=== PATIENT | female | born 1985 | race African-American/Black ===

== ENCOUNTER 2020-07-08 16:32 | Emergency (ER) | payer OTHER, BC ==
[2020-07-08] MEDS ORDERED: HYDROmorphone 1 MG/ML CARPUJECT IM STA (17:36)
--- NOTE | 2020-07-08 17:38 | ED Physician Documentation ---
History of Present Illness - Stated complaint Stated Complaint: BACK/WRIST PX - Chief complaint Chief Complaint: Back Pain - Additonal information Additional information: 34-year-old female presents to the emergency department for evaluation of acute left sided back pain as well as left wrist pain. She reports that 4 days ago at work she and a coworker were helping move a heavy fixed year and it slipped. She felt pain in the left side of the back immediately as well is having new left wrist pain. She reports that she has a history of chronic low back pain secondary to being overweight. She also reports carpal tunnel syndrome in both of her wrists and typically wears a splint. Over the last 3 to 4 days she has found it difficult to get comfortable at night and has been taking methocarbamol without relief of pain. She denies any fevers dysuria hematuria. No vomiting. No fevers, saddle anesthesia or loss of control of bowel or bladder function She lives in [place] and her primary care provider is through [facility]. She is here with her today visiting [place] the [place] but due to the pain they decided to seek treatment. Patient is a known diabetic. Takes metformin. Last hemoglobin A1c somewhere between 7.0 and 7.5 Review of Systems Constitutional: reports: Reviewed and negative Ears: reports: Reviewed and negative Nose: reports: Reviewed and negative Throat: reports: Reviewed and negative Cardiac: reports: Reviewed and negative Respiratory: reports: Reviewed and negative GI: reports: Reviewed and negative : reports: Reviewed and negative Skin: reports: Reviewed and negative Musculoskeletal: reports: Back pain, Joint pain Neurologic: reports: Reviewed and negative Psychiatric: reports: Reviewed and negative PD PAST MEDICAL HISTORY - Past Medical History Cardiovascular: Hypertension Respiratory: None Neuro: None Endocrine/Autoimmune: Type 2 diabetes GI: None H[employer] INS[employer]OR: None : None HEENT: None Psych: Anxiety Musculoskeletal: None Derm: None - Past Surgical History Past Surgical History: No - Present Medications Home Medications: Ambulatory Orders Medication Instructions Recorded Confirmed Cyclobenzaprine [Flexeril] 10 mg PO BID #20 tablet 07/08/20 Ibuprofen [Motrin] 600 mg PO Q6H PRN #30 tab 07/08/20 - Allergies Allergies/Adverse Reactions: Allergies Allergy/AdvReac Type Severity Reaction Status Date / Time No Known Drug Allergies Allergy Verified 07/08/20 16:37 - Social History Does the pt smoke?: No Smoking Status: Never smoker Does the pt drink ETOH?: Yes Does the pt have substance abuse?: No - Immunizations Immunizations are current?: Yes PD ED PE EXPANDED - General General: Alert, No acute distress - Neck Neck: Supple w/out meningeal sx - Cardiac Cardiac: Regular Rate, Radial strong equal, Pedal strong equal, Cap refill < 2 sec, Prolonged cap refill - Respiratory Respiratory: Clear to ausultation jose angel. No: Distress, Labored - Abdomen Abdomen: Normal Bowel sounds. No: Tender to palpation - Back Back: Soft tissue tenderness (Tenderness of the left lateral lower thoracic and lumbar paraspinous muscles. Reduced forward flexion lumbar spine. Motor strength 5 of 5 bilateral lower extremities. capable walking on heels and toes), Limited ROM. No: Normal ROM, Vertebral tenderness, Straight leg raise + R, Straight leg raise + L, CVA TTP right, CVA TTP left - Derm Derm: Normal color. No: Warm and dry, Pale, Abrasion (s), Bruising - Extremities Extremities: Left wrist (Mild tenderness of the left medial wrist over ulnar prominence. No swelling erythema. No reduced range of motion) - Neuro Neuro: Alert and Oriented X 3, CNII-XII intact, PERRL Results - Vitals Vitals: Vital Signs - 24 hr 07/08/20 07/08/20 07/08/20 16:37 16:57 18:43 Temperature 36.7 C Heart Rate 120 H 105 H 81 Respiratory 18 16 16 Rate Blood Pressure 186/105 H 160/94 H 130/85 H O2 Saturation 100 100 100 Oxygen O2 Source Room air - Labs Labs: Laboratory Tests 07/08/20 07/08/20 07/08/20 18:15 18:15 19:01 WBC 13.3 H RBC 4.22 Hgb 11.7 L Hct 36.4 L MCV 86.3 MCH 27.7 MCHC 32.1 RDW 13.5 Plt Count 318 MPV 9.8 Neut # (Auto) 8.1 H Lymph # (Auto) 4.4 H Alexander # (Auto) 0.7 Eos # (Auto) 0.1 Baso # (Auto) 0.0 Absolute Nucleated RBC 0.00 Nucleated RBC % 0.0 Sodium Potassium Chloride Carbon Dioxide Anion Gap BUN Creatinine Estimated GFR (MDRD) Glucose Calcium Total Bilirubin AST ALT Alkaline Phosphatase Total Protein Albumin Globulin Albumin/Globulin Ratio Lipase Urine Color YELLOW Urine Clarity CLEAR Urine pH 6.0 Ur Specific [place] 1.025 1.025 Urine Protein NEGATIVE Urine Glucose (UA) NEGATIVE Urine Ketones NEGATIVE Urine Occult Blood LARGE H Urine Nitrite NEGATIVE Urine Bilirubin NEGATIVE Urine Urobilinogen 0.2 (NORMAL) Ur Leukocyte Esterase NEGATIVE Urine RBC 11-25 H Urine WBC 0-3 Ur Squamous Epith Cells FEW Squamous Urine Bacteria Few Urine Mucus Moderate Strands Ur Microscopic Review INDICATED Urine Culture Comments NOT INDICATED Urine HCG, Qual NEGATIVE 07/08/20 19:01 WBC RBC Hgb Hct MCV MCH MCHC RDW Plt Count MPV Neut # (Auto) Lymph # (Auto) Alexander # (Auto) Eos # (Auto) Baso # (Auto) Absolute Nucleated RBC Nucleated RBC % Sodium 137 Potassium 2.7 L Chloride 97 L Carbon Dioxide 25 Anion Gap 15.0 H BUN 12 Creatinine 0.7 Estimated GFR (MDRD) 115 Glucose 117 H Calcium 8.7 Total Bilirubin 0.5 AST 14 ALT 13 Alkaline Phosphatase 53 Total Protein 7.5 Albumin 3.5 Globulin 4.0 Albumin/Globulin Ratio 0.9 L Lipase 21 L Urine Color Urine Clarity Urine pH Ur Specific [place] Urine Protein Urine Glucose (UA) Urine Ketones Urine Occult Blood Urine Nitrite Urine Bilirubin Urine Urobilinogen Ur Leukocyte Esterase Urine RBC Urine WBC Ur Squamous Epith Cells Urine Bacteria Urine Mucus Ur Microscopic Review Urine Culture Comments Urine HCG, Qual - Rads (name of study) left wrist Radiology: EMP read indepedently (No acute osseous abnormality) CT abd Radiology: Final report received (No evidence of acute urinary tract calcification or obstruction. Small hiatal hernia. Cholelithiasis without evidence of cholecystitis. Normal appendix.) PD MEDICAL DECISION MAKING - ED course Complexity details: reviewed results, considered differential, d/w patient, d/w family ED course: 34-year-old female presents the emergency department with 4 days of left lateral thoracic and lumbar pain as well as left wrist pain after she prevented a heavy fixture from falling at work 4 days ago. On exam she has mild paraspinous tenderness but no midline vertebral tenderness. The left wrist also shows no acute findings on x-ray. Pain improved markedly following 1 mg of Dilaudid in the ER. She then had full range of motion of her lumbar spine and a normal gait. At this time I suspect that she most likely has thoracic and lumbar sprain. I will recommend a short course of NSAID medication plus a muscle relaxer (flexeril) for nighttime use. I have encouraged her to wear her wrist brace at all times that she does have a history of carpal tunnel. schedule close follow up with her primary care provider. Pt is noted to have moderate heamturia. She is not on her menses. I discussed this finding with the patient. She denies any previous history of similar. We elected today to include CT imaging of the abdomen for evaluation of possible nephrolithiasis, however CT scan did not show any acute or worrisome findings. This was discussed with the patient and she will continue close follow-up with her primary care provider Departure - Departure Clinical Impression: Thoracic back sprain Qualifiers: Encounter type: initial encounter Qualified Code(s): S23.9XXA - Sprain of unspecified parts of thorax, initial encounter Lumbar sprain Qualifiers: Encounter type: initial encounter Qualified Code(s): S33.5XXA - Sprain of ligaments of lumbar spine, initial encounter Sprain of left wrist Qualifiers: Encounter type: initial encounter Qualified Code(s): S63.502A - Unspecified sprain of left wrist, initial encounter Hematuria Qualifiers: Hematuria type: other microscopic Qualified Code(s): R31.29 - Other microscopic hematuria; R31.2 - Other microscopic hematuria Condition: Stable Record reviewed to determine appropriate education?: Yes Instructions: ED Low Back Pain Injury Prescriptions: Cyclobenzaprine [Flexeril] 10 mg PO BID #20 tablet Ibuprofen [Motrin] 600 mg PO Q6H PRN #30 tab PRN Reason: Pain Comments: Maday I think that you have strained your left thoracic and lumbar muscles. I would like you to take the ibuprofen with food 3 times a day for the next 5 to 6 days. I also recommend gentle stretching and heat to help relax the muscles. I have prescribed Flexeril as a muscle relaxer. This may be sedating so do not drive or work when taking it. Please schedule close follow-up with your primary care doctor for further evaluation of your back pain. If this is not getting markedly better over the next week your primary doctor may want to make a physical therapy referral. You do have blood in your urine today however there are no signs of infection. We are sending it for a culture to make sure. The CT scan also did not show any worrisome findings. It is important that you discuss the hematuria or bloody urine with your primary care provider for further follow-up. If at any point you develop weakness in your legs, have numbness in your saddle area, develop fevers then please return immediately to the ER
--- NOTE | 2020-07-08 17:52 | XRAY Report ---
PROCEDURE: Wrist 2 View LT INDICATIONS: wrist pain; r/o fx TECHNIQUE: 2 views of the wrist were acquired. COMPARISON: None FINDINGS: Bones: No fractures or dislocations. No suspicious bony lesions. Scaphoid view: Not requested Soft tissues: No suspicious soft tissue calcifications. IMPRESSION: No acute fracture. No osseous lesion. If symptoms and/or clinical suspicion for pathology continue, f urther assessment with repeat plain films, or advanced imaging (e.g., CT, MRI, or bone scan) is recom mended for further assessment. Reviewed by: Mason aPlmer MD on 07/08/2020 5:51 PM PDT Approved by: Mason Palmer MD on 07/08/2020 5:51 PM PDT Station ID: [id number]
[2020-07-08 18:28] LABS: BILIRUBIN,URINE NEGATIVE (NEGATIVE); GLUCOSE, URINE (UA) NEGATIVE (NEGATIVE); KETONES,URINE (UA) NEGATIVE (NEGATIVE); LEUKOCYTE ESTERASE, URINE NEGATIVE (NEGATIVE); NITRITE,URINE NEGATIVE (NEGATIVE); OCCULT BLOOD,URINE LARGE (NEGATIVE); PROTEIN,URINE NEGATIVE (NEGATIVE); UROBILINOGEN,URINE 0.2 (NORMAL) E.U./dL (NORMAL)
[2020-07-08 18:30] LABS: CLARITY,URINE CLEAR (CLEAR)
[2020-07-08 18:39] LABS: BACTERIA,URINE Few /HPF (None Seen); SQUAMOUS EPITHELIAL CELL,UR FEW Squamous (<= Few)
[2020-07-08 18:40] LABS: MUCUS,URINE Moderate Strands
[2020-07-08 19:11] LABS: BASOPHILS % (AUTO) 0.3 %; EOSINOPHILS # (AUTO) 0.1 10^3/uL (0.0-0.7); EOSINOPHILS % (AUTO) 0.5 %; HGB - HEMOGLOBIN 11.7 g/dL (12.0-16.0); LYMPHOCYTES # (AUTO) 4.4 10^3/uL (1.5-3.5); MEAN CORPUSCULAR HEMOGLOBIN 27.7 pg (27.0-31.0); MEAN CORPUSCULAR HGB CONC 32.1 g/dL (32.0-36.0); MEAN CORPUSCULAR VOLUME 86.3 fL (81.0-99.0); MEAN PLATELET VOLUME 9.8 fL (7.9-10.8); MONOCYTES # (AUTO) 0.7 10^3/uL (0.0-1.0); MONOCYTES % (AUTO) 5.2 %; NEUTROPHILS # (AUTO) 8.1 10^3/uL (1.5-6.6); NEUTROPHILS % (AUTO) 60.5 %; PLT - PLATELET COUNT 318 10^3/uL (130-450); RED BLOOD COUNT 4.22 10^6/uL (4.20-5.40); RED CELL DISTRIBUTION WIDTH 13.5 % (12.0-15.0); WHITE BLOOD COUNT 13.3 x10^3/uL (4.8-10.8)
[2020-07-08 19:16] LABS: HCG UR QUAL NEGATIVE
[2020-07-08 19:22] LABS: ALBUMIN 3.5 g/dL (3.2-5.5); ALBUMIN/GLOBULIN RATIO 0.9 (1.0-2.2); BILIRUBIN,TOTAL 0.5 mg/dL (0.2-1.0); CALCIUM 8.7 mg/dL (8.5-10.3); CREATININE 0.7 mg/dL (0.4-1.0); TOTAL PROTEIN 7.5 g/dL (6.7-8.2)
[2020-07-08] MEDS ORDERED: POTASSIUM CHLORIDE 20 MEQ TABLET PO STA (19:34)
--- NOTE | 2020-07-08 19:42 | CT Report ---
PROCEDURE: Abdomen/Pelvis WO INDICATIONS: hematuria TECHNIQUE: Noncontrast 5 mm thick sections acquired from the diaphragms to the symphysis. 5 mm coronal and sagi ttal reformats were then performed. For radiation dose reduction, the following was used: automated exposure control, adjustment of mA and/or kV according to patient size. COMPARISON: None. FINDINGS: Image quality: Excellent. ABDOMEN: Lung bases: Lung bases are clear. Heart size is normal. Solid organs: Liver and spleen are normal in size. Gallbladder demonstrates high density foci withi n its lumen, with no evidence of cholecystitis. Pancreas is normal in contours. No adrenal nodules. Kidneys are normal in size, without hydronephrosis or nephrolithiasis. Peritoneum and bowel: Small hiatal hernia. Unenhanced bowel loops demonstrate normal wall thickness and caliber. No free fluid or air. Nodes and vessels: No retroperitoneal or mesenteric adenopathy by size criteria. Aorta and inferior vena cava are normal in caliber. Miscellaneous: No ventral hernias. PELVIS: Genitourinary: Urinary bladder is decompressed. Miscellaneous: No inguinal hernias or adenopathy. Bones: No suspicious bony lesions. No vertebral body compression fractures. IMPRESSION: 1. No evidence of urinary tract calcification, nor obstruction. 2. Small hiatal hernia. 3. Cholelithiasis without evidence of cholecystitis. 4. Normal appendix. Reviewed by: Mason Palmer MD on 07/08/2020 7:40 PM PDT Approved by: Mason Palmer MD on 07/08/2020 7:40 PM PDT Station ID: [id number]
[2020-07-08 20:15] VITALS: BP 127/79
== END 2020-07-08 20:39 | disposition home or self-care (01) ==
LOC: ED 16:32
DX: S23.3XXA Sprain of ligaments of thoracic spine, initial encounter (principal); S63.502A Unspecified sprain of left wrist, initial encounter; S33.5XXA Sprain of ligaments of lumbar spine, initial encounter; X50.0XXA Overexertion from strenuous movement or load, initial encounter; Y99.0 Civilian activity done for income or pay; R31.29 Other microscopic hematuria; E11.9 Type 2 diabetes mellitus without complications; Z79.84 Long term (current) use of oral hypoglycemic drugs; I10 Essential (primary) hypertension; G56.03 Carpal tunnel syndrome, bilateral upper limbs; E66.9 Obesity, unspecified; K44.9 Diaphragmatic hernia without obstruction or gangrene
CPT/HCPCS: 36415; 73100; 74176; 80053; 81001; 81025; 83690; 85025; 96372; 99284; A9270; J1170; 81003; 87086